=== PATIENT | female | born 1955 | race Caucasian/White ===

== ENCOUNTER 2018-08-15 14:17 | Outpatient (CLI) | payer MEDICARE, MEDICAID ==
[~2018-08-15 14:17] MED LIST: ALBU18HF2 IH; ATOR40TA PO; BUDE10.24 IH; DULO20CA17 PO; DULO20CA50 PO; ESTR-31 PO; HYDR12.5 PO; LISI-222 PO; LYR25C PO; METO25TA6 PO; MOME17SP NS; MONT10TA21 PO; NORCO10T PO; OMEP-84 PO; PRAM0.5T3 PO; SYN0.0125T PO; TIZA4CAP PO; TRAZ-91 PO
== END 2018-08-15 23:59 | disposition home or self-care (01) ==
LOC: VAS 14:17
PROVIDERS: ATTEND Family Medicine
DX: R60.0 Localized edema (principal); R06.02 Shortness of breath
CPT/HCPCS: 93970

== ENCOUNTER 2022-03-26 16:05 | Outpatient (CLI) | payer MEDICARE, OTHER, MEDICAID ==
[~2022-03-26 16:05] MED LIST changes: +AMLO10TA13 PO; -ATOR40TA PO; +ATOR40TA72 PO; +AZI25OT PO; +BUDE10.2 INH; -BUDE10.24 IH; -DULO20CA17 PO; -DULO20CA50 PO; +DULO60CA65 PO; -ESTR-31 PO; +FLUT16SP26; +FURO40TA4 PO; +GABA-532 PO; +GABA600T13 PO; +HYDR-3973 PO; +HYDR-4070 PO; -HYDR12.5 PO; -LISI-222 PO; +LOSA100T57 PO; -LYR25C PO; -METO25TA6 PO; -MOME17SP NS; +MONT-40 PO; -MONT10TA21 PO; +NITR0.4T48 SL; -NORCO10T PO; -OMEP-84 PO; +OMEP20CA16 PO; +PRAM0.5T12 PO; -PRAM0.5T3 PO; +PRED20TA PO; +QUET100T34 PO; +SITA100T11 PO; -SYN0.0125T PO; -TIZA4CAP PO; +TRAM50TA2 PO; -TRAZ-91 PO
== END 2022-03-26 23:59 | disposition home or self-care (01) ==
LOC: VAS 16:05
PROVIDERS: ATTEND Family Medicine
DX: M79.604 Pain in right leg (principal); R10.31 Right lower quadrant pain
CPT/HCPCS: 93971

== ENCOUNTER 2022-10-08 09:24 | Emergency (ER) | payer MEDICARE, OTHER, MEDICAID ==
[~2022-10-08] VITALS: Ht 161.5 cm; Wt 109.1 kg
[~2022-10-08 09:24] MED LIST changes: -LOSA100T57 PO; +LOSA100T58 PO
[2022-10-08 09:29] VITALS: BP 137/90
[2022-10-08] MEDS ORDERED: bacitracin 15gm ointment TP ONE (09:35)
[2022-10-08] MEDS ORDERED: LIDOcaine 1% W/epiNEPHrine 1:100,000 20ml vial IJ ONE (09:35)
[2022-10-08] MEDS ORDERED: DOCU-148 PO (10:30)
[2022-10-08] MEDS ORDERED: CEPH-585 PO (10:30)
[2022-10-08] MEDS ORDERED: HYDR28.316 TOP (10:30)
== END 2022-10-08 10:49 | disposition home or self-care (01) ==
LOC: ER 09:24
DX: S31.831A Laceration without foreign body of anus, initial encounter (principal); E78.00 Pure hypercholesterolemia, unspecified; J44.9 Chronic obstructive pulmonary disease, unspecified; K21.9 Gastro-esophageal reflux disease without esophagitis; I10 Essential (primary) hypertension; Z88.0 Allergy status to penicillin; Z88.2 Allergy status to sulfonamides; Z90.710 Acquired absence of both cervix and uterus; X58.XXXA Exposure to other specified factors, initial encounter; Y93.89 Activity, other specified; Y92.89 Other specified places as the place of occurrence of the external cause; Y99.8 Other external cause status
CPT/HCPCS: 12034; 99284; J7030; 99283; A6253; A6449

== ENCOUNTER 2023-03-04 14:38 | Emergency (ER) | payer MEDICARE, OTHER, MEDICAID ==
[~2023-03-04] VITALS: Ht 160 cm; Wt 119.4 kg
[~2023-03-04 14:38] MED LIST changes: -AZI25OT PO; -BUDE10.2 INH; +BUDE10.7 PO; +CLON0.1T PO; +EST1T PO; +FLUT16SP BOTHNARES; -FLUT16SP26; +FURO20TA4 PO; -FURO40TA4 PO; -GABA-532 PO; -HYDR-4070 PO; +LEVO100T9 PO; +METO50TA7 PO; -NITR0.4T48 SL; -PRED20TA PO; -SITA100T11 PO; +TIZA-205 PO; -TRAM50TA2 PO; +VIT B12; +VIT D3
[2023-03-04 14:45] VITALS: BP 113/74; PULSE 91; RESP 18; O2SAT 93
--- NOTE | 2023-03-04 15:31 | NUR ---
PATIENT RESTING QUIETLY IN BED, RR WNL (12-18), CONVERSIVE AND TALKATIVE. CAP REFILL <2 SECONDS IN EFFECTED EXTREMITY. [id number].
== END 2023-03-04 15:49 | disposition home or self-care (01) ==
LOC: ER 14:39
DX: S93.492A Sprain of other ligament of left ankle, initial encounter (principal); X58.XXXA Exposure to other specified factors, initial encounter; Y93.89 Activity, other specified; Y92.89 Other specified places as the place of occurrence of the external cause; Y99.8 Other external cause status
CPT/HCPCS: 73610; 99284